=== PATIENT | male | born 1950 | race Caucasian/White ===

== ENCOUNTER 2017-10-01 09:30 | Emergency (ER) | payer OTHER ==
[~2017-10-01] VITALS: Ht 185.4 cm; Wt 80.0 kg
[2017-10-01 09:49] VITALS: BP 131/60; PULSE 107; RESP 17; TEMP 98.6; O2SAT 99
[2017-10-01 10:13] LABS: AUTOMATED NEUTROPHIL # 8.2 TH/MM3 (1.8-7.7); BASOPHIL # 0.1 TH/MM3 (0-0.2); BASOPHIL % 0.5 % (0.0-2.0); EOSINOPHIL % 0.2 % (0.0-4.0); HEMATOCRIT 43.1 % (39.0-51.0); HEMOGLOBIN 14.6 GM/DL (13.0-17.0); LYMPH % 15.5 % (9.0-44.0); LYMPHOCYTE # 1.8 TH/MM3 (1.0-4.8); MEAN CELL VOLUME 88.7 FL (80.0-100.0); MEAN CORPUSCULAR HEMOGLOBIN 30.1 PG (27.0-34.0); MEAN PLATELET VOLUME 8.5 FL (7.0-11.0); MONO % 13.4 % (0.0-8.0); MONOCYTE # 1.6 TH/MM3 (0-0.9); NEUT % 70.4 % (16.0-70.0); PLATELET COUNT 194 TH/MM3 (150-450); RED BLOOD COUNT 4.85 MIL/MM3 (4.50-5.90); RED CELL DISTRIBUTION WIDTH 13.5 % (11.6-17.2); WHITE BLOOD COUNT 11.7 TH/MM3 (4.0-11.0)
[2017-10-01 10:26] LABS: BICARBONATE 21.8 MEQ/L (21.0-32.0); CALCIUM 9.1 MG/DL (8.5-10.1); CREATININE 0.98 MG/DL (0.60-1.30)
--- NOTE | 2017-10-01 10:29 | RADRPT ---
EXAM DATE/TIME: 10/01/2017 10:10 [facility] COMPARISON: No previous studies available for comparison. INDICATIONS : Pain in left knee post fall 3 days ago. MEDICAL HISTORY : None. SURGICAL HISTORY : None. ENCOUNTER: Initial ACUITY: 3 days PAIN SCORE: 10/10 LOCATION: Left Knee. FINDINGS: Four view examination of the left knee demonstrates no evidence of fracture or dislocation. Bony min eralization is normal. The articular surfaces are intact. Large suprapatellar joint effusion. CONCLUSION: Large joint effusion. No displaced fracture. Outpatient knee MRI is recommended. Pedro Flanagan MD on October 01, 2017 at 10:26 Board Certified Radiologist. This report was verified electronically.
[2017-10-01] MEDS ORDERED: MORPHINE SULFATE 4 MG/ML INJ IV PUSH ONE (10:30)
[2017-10-01] MEDS ORDERED: LIDOCAINE HCL 2% 20 ML VIAL INFIL ONE (10:30)
[2017-10-01] MEDS ORDERED: ONDANSETRON HCL 4 MG/2 ML VIAL IV PUSH ONE (10:30)
--- NOTE | 2017-10-01 10:36 | PD ---
HPI Chief Complaint: General Weakness Time Seen by Provider: 09:53 Travel History International Travel<30 days: No Contact w/Intl Traveler<30days: No Traveled to known affect area: No History of Present Illness HPI 67 y/o male notes diffuse body aches. He originally had generalized weakness and was seen by a physician and states he had blood work that was okay and sent out. He states then he developed severe diffuse body pain that is uncontrollable and went to the [place] today and they sent him here. He denies any fever or other specific complaints but he states he is having a hard time thinking because he is in so much pain to his whole body. He denies any trauma. He states he recently rode his motorcycle back and forth from [place]. He states the symptoms started on Wednesday. History is limited from patient secondary to pain. [facility] Past Medical History Medical History: Denies Significant Hx Diminished Hearing: No Gastrointestinal Disorders: Yes (GERD, LIVER CIRRHOSIS) Tetanus Vaccination: Unknown Influenza Vaccination: No ?: Not Past Surgical History Surgical History: No Previous Surgery Social History Alcohol Use: Yes Tobacco Use: Yes Substance Use: No Allergies-Medications (Allergen,Severity, Reaction): Coded Allergies: No Known Allergies (Unverified , 10/01/17) Reported Meds & Prescriptions Reported Meds & Active Scripts Active Naproxen 500 Mg Tab 500 Mg PO BID 7 Days Review of Systems Except as stated in HPI: all other systems reviewed are Neg Physical Exam Narrative GENERAL: 67-year-old male who is uncomfortable and cannot sit still SKIN: Focused skin assessment warm/dry. HEAD: Atraumatic. Normocephalic. EYES: Pupils equal and round. No scleral icterus. No injection or drainage. ENT: No nasal bleeding or discharge. Mucous membranes pink and moist. NECK: Trachea midline. No meningeal signs CARDIOVASCULAR: Regular rate and rhythm. RESPIRATORY: No accessory muscle use. Clear to auscultation. Breath sounds equal bilaterally. GASTROINTESTINAL: Abdomen soft, non-tender, nondistended. MUSCULOSKELETAL: No obvious deformities. Patient has swelling noted to left knee and cannot straighten. He notes pain throughout all joints but no other joints are specifically tender with palpation, compartment soft, no pedal edema , neurovascularly intact NEUROLOGICAL: Awake and alert. No obvious cranial nerve deficits. Motor grossly within normal limits. Normal speech. PSYCHIATRIC: Appropriate mood and affect; insight and judgment normal. Data Data Last Documented VS Vital Signs Date Time Temp Pulse Resp B/P (MAP) Pulse Ox O2 Delivery O2 Flow Rate FiO2 10/01/17 14:50 10/01/17 13:12 85 17 95 Room Air 10/01/17 09:49 98.6 Orders Orders Magnesium (Mg) (10/01/17 09:53) Phosphorus (Po4) (10/01/17 09:53) Complete Blood Count With Diff (10/01/17 09:53) Basic Metabolic Panel (Bmp) (10/01/17 09:53) Creatine Kinase (Cpk) (10/01/17 09:53) Iv Access Insert/Monitor (10/01/17 09:53) Ecg Monitoring (10/01/17 09:53) Oximetry (10/01/17 09:53) Knee, Complete (4vws) (10/01/17 ) Us Leg Venous Doppler (10/01/17 ) C-Reactive Protein (Crp) (10/01/17 10:24) Morphine Inj (Morphine Inj) (10/01/17 10:30) Ondansetron Inj (Zofran Inj) (10/01/17 10:30) Lidocaine 2% Inj (Xylocaine 2% Inj) (10/01/17 10:30) Westergren Sedimentation Rate (10/01/17 10:31) Synovial Fl Cell Count + Diff (10/01/17 12:07) Synovial Fluid Crystals (10/01/17 12:07) Synovial Fluid Glucose (10/01/17 12:07) Synovial Fluid Total Protein (10/01/17 12:07) Fluid Culture And Gram Stain (10/01/17 12:07) Ed Discharge Order (10/01/17 13:59) Labs Laboratory Tests Test 10/01/17 10:02 10/01/17 12:25 White Blood Count 11.7 TH/MM3 Red Blood Count 4.85 MIL/MM3 Hemoglobin 14.6 GM/DL Hematocrit 43.1 % Mean Corpuscular Volume 88.7 FL Mean Corpuscular Hemoglobin 30.1 PG Mean Corpuscular Hemoglobin Concent 34.0 % Red Cell Distribution Width 13.5 % Platelet Count 194 TH/MM3 Mean Platelet Volume 8.5 FL Neutrophils (%) (Auto) 70.4 % Lymphocytes (%) (Auto) 15.5 % Monocytes (%) (Auto) 13.4 % Eosinophils (%) (Auto) 0.2 % Basophils (%) (Auto) 0.5 % Neutrophils # (Auto) 8.2 TH/MM3 Lymphocytes # (Auto) 1.8 TH/MM3 Monocytes # (Auto) 1.6 TH/MM3 Eosinophils # (Auto) 0.0 TH/MM3 Basophils # (Auto) 0.1 TH/MM3 CBC Comment DIFF FINAL Differential Comment Erythrocyte Sedimentation Rate 4 mm/hr Blood Urea Nitrogen 18 MG/DL Creatinine 0.98 MG/DL Random Glucose 101 MG/DL Calcium Level 9.1 MG/DL Phosphorus Level 2.0 MG/DL Magnesium Level 2.0 MG/DL Sodium Level 136 MEQ/L Potassium Level 3.7 MEQ/L Chloride Level 102 MEQ/L Carbon Dioxide Level 21.8 MEQ/L Anion Gap 12 MEQ/L Estimat Glomerular Filtration Rate 76 ML/MIN Total Creatine Kinase 49 U/L C-Reactive Protein 3.20 MG/DL Synovial Fluid Color YELLOW Synovial Fluid Appearance MODERATE Synovial Fluid WBC 3200 /MM3 Synovial Fluid RBC 340 /MM3 Synovial Fluid Neutrophils 12 % Synovial Fluid Lymphocytes 21 % Synovial Fluid Monocytes 50 % Synovial Fluid Histiocytes 17 % Synovial Fluid Crystals POS - CALCIUM PYRO MDM Medical Decision Making Medical Screen Exam Complete: Yes Emergency Medical Condition: Yes Medical Record Reviewed: Yes (Past history confirmed) Interpretation(s) CBC & BMP Diagram 10/01/17 10:02 Calcium Level 9.1, Phosphorus Level 2.0 L, Magnesium Level 2.0 Last 24 hours Impressions Lower Extremity Ultrasound 10/01/17 0000 Signed Impressions: Service Date/Time: Sunday, October 01, 2017 10:09 - CONCLUSION: Normal examination. Large Clarke cyst Pedro Flanagan MD Knee X-Ray 10/01/17 0000 Signed Impressions: Service Date/Time: Sunday, October 01, 2017 10:10 - CONCLUSION: Large joint effusion. No displaced fracture. Outpatient knee MRI is recommended. Pedro Flanagan MD Synovial fluid with calcium crystals without emergent signs of infection Differential Diagnosis Rhabdomyolysis, septic arthritis, gout, DVT, dengue.... Narrative Course We will check blood work, x-ray, Doppler ultrasound and reevaluate Given significance of effusion and elevated CRP will proceed with arthrocentesis to check cell counts. Patient informed of risk and benefits and agrees to arthrocentesis. Fluid shows calcium crystals consistent with pseudogout. Patient denies kidney issues, cardiac issues or gastropathy or prior GI bleed. Will place on scheduled naproxen for 1 week and have follow closely with primary, Patient denies any new complaints and states that they are feeling better. Patient happy with care, all questions answered. Patient knows that follow up is incumbent on them and to return to the emergency room immediately if new or worsening symptoms develop. Patient given strict return precautions, vitals reviewed and are normal, agrees to further workup as an outpatient. Procedures Procedure Narrative Left knee arthrocentesis: After informed consent patient agreed to procedure. Patient had area cleansed with Betadine and sterilely prepped. Patient had lidocaine injected for pain control. A midline medial approach was used and immediately got fluid and about 25 cc was pulled off and was a dark yellow. This will be sent to the lab for analysis Diagnosis Primary Impression: Pseudogout Additional Impressions: Effusion, left knee Myalgia Patient Instructions: General Instructions Additional Instructions: return as needed, follow with primary wednesday, naproxen as scheduled with food, tylenol as needed for additional pain control Med/Other Pt SpecificInfo: Prescription(s) given Scripts Naproxen (Naproxen) 500 Mg Tab 500 MG PO BID for 7 Days, #14 TAB 0 Refills Prov: Sofia Ozuna MD 10/01/17 Disposition: 01 DISCHARGE HOME Condition: Stable Sofia Ozuna MD Oct 01, 2017 10:36
--- NOTE | 2017-10-01 11:13 | RADRPT ---
EXAM DATE/TIME: 10/01/2017 10:09 [facility] COMPARISON: No previous studies available for comparison. INDICATIONS : Left leg pain. MEDICAL HISTORY : Gastroesophageal reflux disease. Cirrhosis. Tobacco use. SURGICAL HISTORY : None. ENCOUNTER: Initial ACUITY: 3 days PAIN SCORE: 10/10 LOCATION: Left leg. TECHNIQUE: Venous ultrasound of the leg was performed from the inguinal ligament to the proximal calf. Real-katya e, color Doppler and spectral tracing, compression and augmentation techniques were used. FINDINGS: There is normal compressibility of the deep venous system from the inguinal region to the proximal ca lf. No echogenic clot is seen in the lumen of the common femoral, femoral, popliteal, and posterior tibial veins. There is a normal response of the venous system to proximal and distal augmentation an d respiration. CONCLUSION: Normal examination. Large Clarke cyst Pedro Flanagan MD on October 01, 2017 at 11:10 Board Certified Radiologist. This report was verified electronically.
[2017-10-01 13:12] VITALS: BP 123/66; PULSE 85; RESP 17; O2SAT 95
[2017-10-01 13:30] LABS: WBC, SYNOVIAL FLUID 3200 /MM3 (0-200)
[2017-10-01] MEDS ORDERED: NAPR500T2 PO (13:58)
== END 2017-10-01 14:50 | disposition home or self-care (01) ==
LOC: NEPE 09:30
DX: M11.20 Other chondrocalcinosis, unspecified site (principal); M25.462 Effusion, left knee; M79.1 Myalgia; K74.60 Unspecified cirrhosis of liver; Z72.0 Tobacco use
CPT/HCPCS: 20610; 73564; 80048; 82550; 82945; 83735; 84100; 84157; 85025; 85652; 86140; 87070; 87205; 89051; 89060; 93971; 96374; 96375; 99285; J2270; J2405